=== PATIENT | female | born 1975 | race Caucasian/White ===

== ENCOUNTER 2021-07-21 09:05 | Inpatient (IN) | payer OTHER ==
[2021-07-21 16:53] LABS: HEMOGLOBIN 13.7 GM/dl (10.7-15.3); MCH 33.9 pg (25.7-33.7); MCHC 34.2 g/dl (32.0-36.0); MEAN CELL VOLUME 99.2 fl (80-96); MEAN PLT VOLUME 7.7 fl (7.5-11.1); PLATELET COUNT 282 10^3/uL (134-434); RBC 4.04 M/mm3 (3.60-5.2); WHITE BLOOD COUNT 11.3 K/mm3 (4.0-10.8)
[2021-07-21 16:56] LABS: ACTIVATED PTT 24.1 SECONDS (25.2-36.5)
[2021-07-21 16:58] LABS: ALBUMIN 4.1 g/dl (3.4-5.0); BILIRUBIN,TOTAL 1.2 mg/dl (0.2-1); CALCIUM 8.3 mg/dl (8.5-10); CREATININE 0.8 mg/dl (0.55-1.3); TOT PROT 7.7 g/dl (6.4-8.2)
[2021-07-21 17:00] LABS: INR 1.22 (0.82-1.09); PROTHROMBIN TIME (PATIENT) 13.5 SEC (10.2-13.0)
[2021-07-21 17:36] LABS: PLATELET ESTIMATE ADEQUATE
[2021-07-21] MEDS ORDERED: morphine CARPU-JECT 4 MG/1 ML DISP.SYRIN IVPUSH ONE (17:55)
[2021-07-21] MEDS ORDERED: morphine SULFATE 4 MG/ML VIAL ONE (17:57)
[2021-07-21] MEDS ORDERED: morphine SULFATE 4 MG/ML VIAL IVPUSH PRN (18:16)
[2021-07-21] MEDS ORDERED: oxyCODONE HCL 5 MG TABLET PO PRN (18:17)
[2021-07-21 21:08] VITALS: BMI 37.3
[2021-07-21] MEDS: ACETAMINOPHEN 1000 MG/100 ML VIAL IVPB PRN (21:48)
[2021-07-22] MEDS: ACETAMINOPHEN 1000 MG/100 ML VIAL IVPB PRN (10:25)
[2021-07-22] MEDS ORDERED: PROMETHAZINE HCL 25 MG/1 ML VIAL IVPUSH PRN (13:05)
[2021-07-22] MEDS ORDERED: ONDANSETRON 4 MG/2 ML VIAL IVPUSH PRN (13:05)
[2021-07-22] MEDS ORDERED: ROPIVACAINE HCL 0.5% 30ML VIAL ONE (13:11)
[2021-07-22] MEDS ORDERED: MIDAZOLAM HCL 2 MG/2 ML SINGLE DOSE VIAL ONE ×3 (13:12→14:19)
[2021-07-22] MEDS ORDERED: PROPOFOL 20 ML ONE ×4 (14:20)
[2021-07-22] MEDS ORDERED: oxyCODONE HCL 5 MG TABLET PO PRN (16:07)
[2021-07-22] MEDS ORDERED: DEXTROSE 5%-0.45% SALINE 1,000 ML IV SCH ×2 (16:07)
[2021-07-22] MEDS ORDERED: ACETAMINOPHEN 1000 MG/100 ML VIAL IVPB PRN (16:07)
[2021-07-22] MEDS ORDERED: LACTATED RINGERS SOLUTION 1,000 ML IV SCH (17:45)
[2021-07-22] MEDS: oxyCODONE HCL 5 MG TABLET PO PRN ×2 (18:55→23:23)
[2021-07-22] MEDS: morphine SULFATE 4 MG/ML VIAL IVPUSH PRN (21:06)
[2021-07-22] MEDS ORDERED: DEXTROSE 5%-WATER - 50 ML IVPB ONE (21:14)
[2021-07-22] MEDS ORDERED: ceFAZolin SODIUM 1 GM VIAL ONE (21:14)
[2021-07-22] MEDS ORDERED: ceFAZolin 2 GRAM PREMIX BAG IVPB SCH (23:00)
[2021-07-22] MEDS: CEFAZOLIN 2 GM in DEXTROSE 5%-WATER - 50 ML IVPB SCH (23:22)
[2021-07-23] MEDS ORDERED: ceFAZolin SODIUM 1 GM VIAL ONE ×2 (02:41→10:18)
[2021-07-23] MEDS ORDERED: DEXTROSE 5%-WATER - 50 ML IVPB ONE ×2 (02:42→10:19)
[2021-07-23 05:29] VITALS: TEMP 98.5
[2021-07-23] MEDS: CEFAZOLIN 2 GM in DEXTROSE 5%-WATER - 50 ML IVPB SCH (06:28)
[2021-07-23] MEDS: morphine SULFATE 4 MG/ML VIAL IVPUSH PRN (06:54)
[2021-07-23] MEDS: oxyCODONE HCL 5 MG TABLET PO PRN (10:39)
[2021-07-23 10:47] VITALS: BP 151/74; PULSE 100
== END 2021-07-23 16:06 | disposition home or self-care (01) | DRG 313 ==
LOC: FER 09:05 → FM/S 16:05 → INTOOBSV 19:45 → OBSVTOIN 19:45 → UNDOADMOB 19:45
PROVIDERS: ADMIT Internal Medicine; ATTEND Nurse Practitioner Acute Care
PROC: 0QSG04Z Reposition Right Tibia with Internal Fixation Device, Open Approach (ICD-10-PCS; principal; 2021-07-22 14:28)
DX: S82.141A Displaced bicondylar fracture of right tibia, initial encounter for closed fracture (principal); M25.561 Pain in right knee; M25.469 Effusion, unspecified knee; F12.90 Cannabis use, unspecified, uncomplicated; V03.09XA Pedestrian with other conveyance injured in collision with car, pick-up truck or van in nontraffic accident, initial encounter; Y92.89 Other specified places as the place of occurrence of the external cause; F17.210 Nicotine dependence, cigarettes, uncomplicated
CPT/HCPCS: 36415; 73562-TC-RT-FY; 73700-TC-RT; 80053; 81025; 85025; 85610; 85730; 86850; 86900; 86901; 93005; 94760; 97116-GP; 97162-GP; 99285-25; C9803; G0378; J0131; U0003; U0005